=== PATIENT | male | born 1955 | race African-American/Black ===

== ENCOUNTER 2018-11-20 21:17 | Inpatient (IN) | payer OTHER ==
[2018-11-20 22:36] LABS: Lactic Acid 2.8 mmol/L (0.5-2.2)
[2018-11-20 23:05] LABS: Bilirubin Negative (Negative); Blood, Urine 1+ (Negative); Clarity Clear (Clear); Glucose, Urine (Dipstick) Normal (Negative); Leukocyte 500 Leu/uL (Negative); Nitrite Negative (Negative); Protein, Urine (Dipstick) 10 mg/dL (Neg-Trace); RBC/HPF 0-3 HPF (0-3); Squamous Epithelial 0-3 HPF (0-3); Urobilinogen Normal mg/dL (Less than 2)
[2018-11-20 23:07] LABS: Bacteria/HPF 1+ HPF (None Seen)
[2018-11-21] MEDS ORDERED: Ondansetron PF 4 MG/2 ML Vial IVP PRN (00:31)
[2018-11-21] MEDS ORDERED: Acetaminophen 325 MG TAB PO PRN (00:31)
[2018-11-21] MEDS ORDERED: Ondansetron ODT 4 MG TAB SL PRN (00:31)
[2018-11-21] MEDS ORDERED: Dextrose 5% in Water 1,000 ML IV PRN (01:59)
[2018-11-21] MEDS ORDERED: HumaLOG 300 UNITS/3 ML VIAL SC PRN (01:59)
[2018-11-21] MEDS ORDERED: Dextrose 50% Abboject 50 ML SYRINGE SLOW IVP PRN (01:59)
[2018-11-21] MEDS ORDERED: Senokot S 8.6-50 MG TAB PO PRN (02:38)
[2018-11-21] MEDS ORDERED: HYDROcodone/Acetaminophen 5/325 mg Tablet PO PRN (02:38)
--- NOTE | 2018-11-21 03:51 | HP ---
PRIMARY CARE PHYSICIAN: Dr. Cotto in [place]. UROLOGIST: Dr. Molina. CHIEF COMPLAINT: Urinary retention, burning with urination. HISTORY OF PRESENT ILLNESS: Mr. Lazo is a 63-year-old man, who reported to [facility] for urinary retention, urinary burning and urgency. Reports that he did not feel well today. The patient is a poor historian. Does report that he sees Dr. Cotto in [place], has an appointment to follow up with him on this 05 of December. Also reports seeing Dr. Molina, Urology. He is not exactly sure why he sees him, but he said recently within the last week, got a call from the office stating that Dr. Molina wanted to see him. Reports that he has a past medical history pertinent for hypertension and is on metformin, and that he does take his sugars and he said" they run pretty good." Per the ER record in [facility], he was initially seen for confusion and altered mental status changes. History was provided by the patient's family. Per the family, the patient's blood sugar was 30 this morning and the patient was given some peanut butter. He improved after that, and after that, he refused to let them bring him to the ER and did not want an IV. Family says that he is walking in the wrong direction, had to be physically redirected. He is blind in one eye, but sees fine in the other. Family reports that he acts very similarly when his blood sugar gets low. Family also reports that he does drink alcohol. drinks beer and a little bit of whiskey and probably needs to cut that out and he would feel better. The patient did not tell me any of this. This is all obtained from the record from [facility]. He was evaluated by EMS in [place] and evidently was talked into coming to the ER at [facility]. When he was there, his vital signs, he was initially a little hypotensive at 92/59, pulse was 99, respirations 21. He has a past medical history of diabetes, hypertension, and high cholesterol. He is unsure of his surgical history. Per doctor's note in the ER, the patient's glucose was less than 100. Per EMS and family, he had a blood sugar of about 30. He was given a half amp of D50 in the emergency room. He was also given some sodium chloride, Zosyn and Levaquin, some thiamine and 2 L of fluid. He met sepsis criteria with the urinalysis. White blood cell count was 6.3, BUN was 50, creatinine was 3.35, and we have no reference. The last time his creatinine in our system was in 2011 and it was within normal range. Lactic acid was 2.8. CK was 727, CK-MB was 9.7, plasma alcohol was 41. Evidently, the patient had some residual in his bladder in [facility] and they placed a Aguilar, that is draining clear yellow urine, and he was sent over to [facility] for admission for UTI, sepsis, urinary retention, and acute kidney injury. REVIEW OF SYSTEMS: The patient reports urinary frequency, urinary urgency, confusion, mental status changes, polyuria, reports drinking alcohol. All other systems are reviewed and are negative unless mentioned in the HPI. PAST MEDICAL HISTORY: Pertinent for diabetes, hypertension, and high cholesterol. PAST SURGICAL HISTORY: Unknown. PSYCHIATRIC HISTORY: None. SOCIAL HISTORY: Lives with his family. Drinks everyday. Denies any drug use. Has no smoking history. ALLERGIES: NONE. CURRENT MEDICATIONS: This I have to be reconciled. PHYSICAL EXAMINATION: VITAL SIGNS: Blood pressure is 133/65, pulse is 113, respirations are 24, temp is 98.1, and 94% on room air. GENERAL: The patient is in no apparent distress. He is alert and oriented to person, place, and time. HEENT: Head is atraumatic and normocephalic. Eyes; eyelids are normal to inspection. Pupils are equally round and reactive to light. ENT, mucous membranes are dry. NECK: Normal range of motion. Trachea is midline. RESPIRATORY: He has some mild tachypnea, although exam is limited by body habitus. CARDIOVASCULAR: Regular heart rate and rhythm. Heart sounds are normal. ABDOMEN: Nontender. Bowel sounds are heard. BACK: Normal inspection. Normal range of motion. No tenderness. EXTREMITIES: Upper extremity, normal range of motion. Motor strength is normal. Radial pulses are equal. Lower extremity, changes consistent with venous stasis to bilateral lower extremities. He has +2 edema bilaterally. Pedal pulses are normal. Strength is normal. NEUROLOGIC: He has poor recent memory. He is oriented to person, place, and time. He is blind in right eye per history. SKIN: He has a 3 x 1.5 cm shallow ulceration on the back of the neck with a shallow eschar, and no surrounding induration or redness. DIAGNOSTIC DATA: EKG shows normal sinus rhythm, beats per minute 100, no ectopics, ST segments are normal. CT head, no acute findings. Chest, negative and poor quality due to body habitus. PLAN/ASSESSMENT: 1. Urinary tract infection, urinary retention, with some possible acute on chronic kidney dysfunction. We will continue IV hydration. Start the patient on some Rocephin. Urine has been sent off for culture. Recheck creatinine and base met in the morning. Trend vital signs. It may be pertinent to get medical records from Dr. Molina's office, that may give us some insight into renal function and reason for recent visits. The patient reports he has had a Aguilar about 5 years ago, but is not really clear why. If creatinine does not improve significantly with some hydration and IV antibiotics, then could consider a Nephrology consult. 2. History of hypertension. We will ask nursing staff to help us obtain history of medications and restart as needed. 3. Diabetes. Accu-Cheks before meals and at bedtime. Add sliding scale coverage as needed. 4. Deep venous thrombosis and gastrointestinal prophylaxis have been started. 5. Case was discussed with Dr. Ornelas, who agrees with plan. 6. Hospital course is depending on clinical findings. Job ID: [id number]
[2018-11-21] MEDS: Sodium Chloride 0.9% 1,000 ML IV SCH ×2 (04:09→17:56)
[2018-11-21] MEDS ORDERED: Dextrose 50% Abboject 50 ML SYRINGE ONE (05:02)
[2018-11-21 05:55] LABS: #Eosinphils 0.1 thou/uL (0.0-0.7); #Neutrophils 3.6 thou/uL (1.40-6.50); %Basophils 0.4 % (0.0-1.0); %Eosinophils 1.1 % (0.0-10.0); %Lymphocytes 29.7 % (21.0-51.0); %Monocytes 14.7 % (0.0-10.0); %Neutrophils 54.1 % (42.0-75.0); Hemoglobin 12.5 g/dL (14.0-18.0); Mean Corpuscular HGB CONC 32.4 g/dL (32.0-36.0); Mean Corpuscular Hemoglobin 24.9 pg (27.0-31.0); Mean Platelet Volume 10.9 fL (7.4-10.4); Platelet Count 120 thou/uL (130-400); RBC Distribution Width 12.9 % (11.5-14.5); Red Blood Cell (RBC) Count 5.02 mill/uL (4.70-6.10); White Blood Cell (WBC) Count 6.7 thou/uL (4.8-10.8)
[2018-11-21 06:12] LABS: ALT (SGPT) 14 U/L (8-55); AST (SGOT) 25 U/L (5-34); Albumin 3.7 g/dL (3.4-4.8); Alkaline Phosphatase 88 U/L (40-150); Anion Gap 13 mmol/L (10-20); BUN (Urea Nitrogen) 39 mg/dL (8.4-25.7); Bilirubin, Total 0.6 mg/dL (0.2-1.2); Calc. Creatinine Clearance 0 mL/min (70-130); Calcium 8.8 mg/dL (7.8-10.44); Carbon Dioxide 24 mmol/L (23-31); Chloride 107 mmol/L (98-107); Estimated GFR-MDRD 50; Globulin 3.4 g/dL (2.4-3.5); Glucose 92 mg/dL (80-115); Potassium 3.6 mmol/L (3.5-5.1); Protein, Total 7.1 g/dL (5.8-8.1); Sodium 140 mmol/L (136-145)
[2018-11-21 07:26] VITALS: BMI 44.0
[2018-11-21] MEDS ORDERED: Famotidine 20 MG TAB PO SCH (09:00)
[2018-11-21] MEDS: cefTRIAXone\\ROCEPHIN 2 GM in Sodium Chloride 0.9% 100 ML IVPB SCH (11:48)
[2018-11-21] MEDS ORDERED: Acetaminophen/Codeine 30-300mg Tablet PO PRN (18:05)
[2018-11-21] MEDS ORDERED: hydrALAZINE 20 MG/ML VIAL SLOW IVP PRN (18:09)
[2018-11-21] MEDS: Heparin 5,000 UNITS/ML VIAL SC SCH (20:03)
[2018-11-21] MEDS ORDERED: Tamsulosin HCl 0.4 MG CAP PO SCH (21:00)
[2018-11-22 06:20] LABS: Albumin 3.5 g/dL (3.4-4.8); Anion Gap 12 mmol/L (10-20); BUN (Urea Nitrogen) 16 mg/dL (8.4-25.7); BUN/Creatinine Ratio 19.75; Calc. Creatinine Clearance 186 mL/min (70-130); Calcium 8.6 mg/dL (7.8-10.44); Carbon Dioxide 26 mmol/L (23-31); Chloride 107 mmol/L (98-107); Estimated GFR-MDRD Greater than 90; Glucose 117 mg/dL (80-115); Phosphorus 1.9 mg/dL (2.3-4.7); Potassium 3.7 mmol/L (3.5-5.1); Sodium 141 mmol/L (136-145)
[2018-11-22] MEDS ORDERED: Potassium Phosphate 21 MMOL in Sodium Chloride 0.9% 250 ML 250 ML IVPB SCH (06:45)
--- NOTE | 2018-11-22 07:28 | ULT ---
BILATERAL RENAL ULTRASOUND: Date: 11/22/18 CLINICAL INDICATION: Acute kidney insufficiency. FINDINGS: There is limited visualization of the left kidney due to persistent shadowing of the region of the le ft renal fossa. There is a small focus of increased echogenicity, approximately 7 mm. This could rela te to renal sinus fat. No definitive posterior shadowing is seen to confirm shadowing calculus. Withi n the imaged right kidney, there is no overt hydronephrosis or suspicious lesion. Urinary bladder is decompressed, limiting assessment. IMPRESSION: No definite acute renal pathology. Left kidney is limited in assessment due to persistent obscuration by shadowing. A small focus of subcentimeter increased echogenicity of the central region of the lef t kidney is visualized, as discussed above. POS: RED
[2018-11-22 08:11] VITALS: BP 134/81; TEMP 98.9
[2018-11-22] MEDS ORDERED: Finasteride 5 MG TAB PO SCH (09:00)
[2018-11-22] MEDS ORDERED: Latanoprost 0.005% Ophth Soln 2.5 ml Bottle R EYE SCH (09:00)
[2018-11-22] MEDS: Sodium Chloride 0.9% 1,000 ML IV SCH (09:10)
[2018-11-22] MEDS: Heparin 5,000 UNITS/ML VIAL SC SCH (09:10)
--- NOTE | 2018-11-22 11:58 | CON ---
DATE OF CONSULTATION: 11/22/2018 REASON FOR CONSULTATION: Urinary tract infection and acute kidney injury. HISTORY OF PRESENT ILLNESS: Mr. Lazo is a 63-year-old male, who was reportedly seen in [place] for urinary retention, dysuria, and urinary urgency. The patient sees Dr. Molina as an outpatient. After speaking with Dr. Molina, evidently, the patient had a urethral stricture a couple of years ago and periodically follows up for various voiding complaints. The patient is a poor historian. He evidently had a Aguilar placed in [place]. Evidently, his blood sugar was very low at that time. He had hypotension, a lactate of 2.8, and a creatinine of 3.35. The patient met sepsis criteria and was therefore transferred to [facility] in [place] for admission and further evaluation. The patient currently states he is feeling much better. He denies any fever or chills. No gross hematuria. He states waiting up to this, he had urinary frequency, urgency, and confusion. No other complaints. PAST MEDICAL HISTORY: Diabetes, hypertension, urethral stricture, and hyperlipidemia. PAST SURGICAL HISTORY: Unknown. FAMILY HISTORY: Noncontributory. SOCIAL HISTORY: Lives with his family. The patient drinks beer every day, usually not more than 3 to 4. Denies any drug use. No smoking history. ALLERGIES: NO KNOWN DRUG ALLERGIES. MEDICATIONS: Please see home medication list. These were reviewed. There are no changes. REVIEW OF SYSTEMS: Full 12-point review of systems was performed and is negative other than that mentioned in HPI. PHYSICAL EXAMINATION: VITAL SIGNS: Temperature is 98.9, pulse 89, blood pressure 134/81, respirations 18, and oxygen saturation 94% on room air. GENERAL: He is alert and oriented x3, in no apparent distress. HEENT: Normocephalic and atraumatic. Sclerae anicteric. NECK: Supple. No masses or lymphadenopathy. CARDIOVASCULAR: Regular rate and rhythm. PULMONARY: Breathing unlabored. No wheezing. ABDOMEN: Obese, soft, and nontender/nondistended. No masses or organomegaly. No suprapubic tenderness to palpation. No CVA tenderness. GENITOURINARY: Aguilar catheter is in place, draining clear yellow urine. Normal external genitalia. EXTREMITIES: 1+ bilateral lower extremity edema. NEUROLOGIC: No focal deficits. LABORATORY DATA: White blood cell count 6.7, hemoglobin 12.5, hematocrit 38.6, and platelets 120. Sodium 141, potassium 3.7, chloride 107, bicarb 26, BUN 16, and creatinine 0.81, which is down from 1.7 yesterday and above 3 the day prior. RADIOLOGY DATA: Renal ultrasound demonstrates no hydroureteronephrosis. No acute renal pathology. ASSESSMENT: A 63-year-old male with acute kidney injury, urinary tract infection, and possible urinary retention. PLAN: The degree of the patient's urinary retention is unclear. There was not an amount of urine documented at the time of Aguilar catheter placement. His creatinine has improved to normal. His urine output has been good. Aguilar catheter has been draining well. Renal ultrasound is normal, recommend Aguilar remain in place. From urologic standpoint, he can be discharged when he is otherwise medically stable. I have spoken with Dr. Molina and he will schedule him followup early next week. Thank you for allowing me to participate in the care of this patient. Job ID: [id number]
[2018-11-22] MEDS: cefTRIAXone\\ROCEPHIN 2 GM in Sodium Chloride 0.9% 100 ML IVPB SCH (12:53)
[2018-11-22] MEDS ORDERED: Gabapentin 100 MG CAP PO SCH (15:00)
[2018-11-22] MEDS ORDERED: metFORMIN 500 MG TAB PO SCH (17:00)
--- NOTE | 2018-11-23 16:44 | DIS ---
DATE OF ADMISSION: 11/20/2018 DATE OF DISCHARGE: 11/22/2018 DISCHARGE DISPOSITION: Home. FOLLOWUP: 1. Follow up with primary care physician, Dr. Cotto in 1 week. 2. Follow up with Urology, Dr. Molina in 2 to 3 days. ALLERGIES: NO KNOWN DRUG ALLERGIES. THE PATIENT WAS ADVISED TO HOLD GLIMEPIRIDE, LISINOPRIL, AND HYDROCHLOROTHIAZIDE FOR 2 DAYS. HE WAS ALSO ADVISED TO MONITOR HIS BLOOD SUGAR 3 TIMES A DAY AND MAINTAIN A LOG. HOLD GLIMEPIRIDE AND METFORMIN IF SUGARS ARE BELOW 120 FOR NOW. BASIC METABOLIC PROFILE AND PHOSPHORUS AFTER 1-WEEK ARE RECOMMENDED. PRIMARY CARE PHYSICIAN ADVISED TO FOLLOW. SIGNIFICANT LABORATORY DATA: Phosphorus on the day of discharge 1.9, replace. Creatinine on admission was 3.35; at discharge, it is 0.81. Lactic acid 2.8. Lowest blood sugar was 47. Renal ultrasound was negative for obstructive uropathy. Urine culture showed presumptive Enterococcus less than 10,000 CFU/mL. INPATIENT COAL OR ORE CONTROLLER: Urology, Dr. Xavier. BRIEF HOSPITAL COURSE: The patient is a 63-year-old male with diabetes mellitus type 2, hypertension, and hyperlipidemia, presented to the hospital with urinary retention along with burning while urination. A Aguilar catheter was placed in the emergency room. He normally follows Urology, Dr. Molina. He was restarted on his Flomax and finasteride. He was found to have acute kidney injury secondary to postobstructive uropathy. His creatinine on admission was 3.35 that improved with IV hydration. He was also evaluated by Urology, Dr. Xavier, who recommended to continue Aguilar catheter at discharge. He will follow up with Dr. Molina as an outpatient. Renal ultrasound was negative for obstructive uropathy. He was also found to have hypophosphatemia, which has been replaced. His lowest blood sugar initially when he came in here was 47. This was probably due to glimepiride in the setting of acute kidney injury. He was advised to resume glimepiride, metformin, lisinopril, hydrochlorothiazide after 2 days. He was also advised to monitor his blood sugar on a daily basis. He was extensively counseled on Aguilar care. He appears stable for discharge. FINAL DIAGNOSES: 1. Urinary retention. Aguilar catheter has been placed. 2. Acute kidney injury secondary to #1, resolved. 3. Hypophosphatemia, corrected. 4. Diabetes mellitus type 2. 5. Hypertension. 6. Hyperlipidemia. 7. Morbid obesity with a BMI of 44.1. 8. Lactic acidosis secondary to renal failure. 9. Hypoglycemia secondary to glimepiride and metformin in the setting of acute kidney injury. 10. Chronic anemia. PLAN: Plan was discussed with the patient in detail. He stated understanding. Job ID: [id number]
== END 2018-11-22 17:33 | disposition home or self-care (01) | DRG 683 ==
LOC: ERS 21:17 → OBSVTOIN 22:27 → T4-A 22:27
PROVIDERS: ADMIT Internal Medicine; ATTEND Internal Medicine
DX: N17.9 Acute kidney failure, unspecified (principal); Z68.41 Body mass index [BMI] 40.0-44.9, adult; I10 Essential (primary) hypertension; E78.00 Pure hypercholesterolemia, unspecified; E11.649 Type 2 diabetes mellitus with hypoglycemia without coma; T38.3X5A Adverse effect of insulin and oral hypoglycemic [antidiabetic] drugs, initial encounter; E83.39 Other disorders of phosphorus metabolism; R33.9 Retention of urine, unspecified; E66.01 Morbid (severe) obesity due to excess calories; D64.9 Anemia, unspecified; Z79.84 Long term (current) use of oral hypoglycemic drugs
CPT/HCPCS: 36415; 36416; 51702; 51798; 76770; 80053; 80069; 83605; 85025; 87086; J0696; J1644; J3490; J7050